=== PATIENT | male | born 1995 | race Hispanic/Latino ===

== ENCOUNTER 2018-10-20 11:37 | Emergency (ER) | payer OTHER ==
--- NOTE | 2018-10-20 12:10 | ER ---
Nurse's Notes [facility] Name: Ian Garcia Age: 23 yrs Sex: Male : 1995 Arrival Date: 10/20/2018 Time: 11:39 Bed 15 Private MD: Diagnosis: Cellulitis and inflammation of penis Presentation: 10/20 11:46 Presenting complaint: Patient states: possible insect bite to groin area that it's red aa5 and tender. Pt reports he noticed it yesterday. Transition of care: patient was not received from another setting of care. Onset of symptoms was October 2018. Risk Assessment: Do you want to hurt yourself or someone else? Patient reports no desire to harm self or others. Initial Sepsis Screen: Does the patient meet any 2 criteria? No. Patient's initial sepsis screen is negative. Does the patient have a suspected source of infection? No. Patient's initial sepsis screen is negative. Care prior to arrival: None. 11:46 Acuity: KATHLEEN 4 aa5 11:46 Method Of Arrival: Ambulatory aa5 Historical: - Allergies: 11:47 No Known Allergies; aa5 - Home Meds: 11:47 None [Active]; aa5 - PMHx: 11:47 None; aa5 - PSHx: 11:47 None; aa5 - Immunization history:: Adult Immunizations up to date. - Social history:: Smoking status: Patient uses tobacco products, denies chronic smoking, but will smoke occasionally. - Ebola Screening: : No symptoms or risks identified at this time. - Family history:: not pertinent. - Hospitalizations: : No recent hospitalization is reported. Screenin:16 Abuse screen: Denies threats or abuse. Denies injuries from another. Nutritional aj screening: No deficits noted. Tuberculosis screening: No symptoms or risk factors identified. Fall Risk None identified. Assessment: 12:16 General: Appears in no apparent distress. comfortable, Behavior is calm, cooperative, aj appropriate for age. Pain: Complains of pain in shaft of penis. Neuro: Level of Consciousness is awake, alert, obeys commands, Oriented to person, place, time, situation, Appropriate for age. Respiratory: Airway is patent Respiratory effort is even, unlabored, Respiratory pattern is regular, symmetrical. Derm: Skin is intact, is healthy with good turgor, Skin is pink, warm \T\ dry. normal, Abscess located on shaft of penis. Vital Signs: 11:47 BP 130 / 66; Pulse 72; Resp 16 S; Temp 98.0(TE); Pulse Ox 98% on R/A; Weight 104.33 kg aa5 (R); Height 6 ft. 1 in. (185.42 cm) (R); Pain 5/10; 11:47 Body Mass Index 30.34 (104.33 kg, 185.42 cm) aa5 ED Course: 11:39 Patient arrived in ED. as 11:46 Arm band placed on. aa5 11:47 Triage completed. aa5 11:51 Jarod Coppola MD is Attending Physician. rn 12:09 Livia Terry RN is Primary Nurse. aj 12:16 Patient has correct armband on for positive identification. aj 12:16 No provider procedures requiring assistance completed. Patient did not have IV access aj during this emergency room visit. Administered Medications: No medications were administered Outcome: 12:09 Discharge ordered by . rn 12:16 Discharged to home ambulatory. aj 12:16 Condition: good 12:16 Discharge instructions given to patient, Instructed on discharge instructions, follow up and referral plans. medication usage, Demonstrated understanding of instructions, follow-up care, medications, Prescriptions given X 2. 12:17 Patient left the ED. aj Signatures: Livia Terry, RN RN Emma Caal Roman, MD MD rn Calderon, Audri, RN RN [facility]
--- NOTE | 2018-10-20 12:10 | EDPHYS ---
Physician Documentation [facility] Name: Ian Garcia Age: 23 yrs Sex: Male : 1995 Arrival Date: 10/20/2018 Time: 11:39 Bed 15 Private MD: ED Physician Jarod Coppola HPI: 10/20 11:59 This 23 yrs old Male presents to ER via Ambulatory with complaints of Insect rn Bite/swollen area. 11:59 the patient presents with a swollen area of the pelvis. Description: swollen, warm. rn Onset: The symptoms/episode began/occurred yesterday. Possible cause(s): unknown. Modifying factors: the symptoms are alleviated by nothing, the symptoms are aggravated by touching. Severity of symptoms: At their worst the symptoms were mild, in the emergency department the symptoms are unchanged. The patient has not experienced similar symptoms in the past. REports noticed swelling and pain since yesterday, at left base of penis, not sure if insect bite or ingrown hair, shaves, no fever, has been "messing with it", no purulence or pus expressed, reports only blood comes out. Denies concern for STI. Now left groin hurts as well. No scrotal pain or complaints. . Historical: - Allergies: 11:47 No Known Allergies; aa5 - Home Meds: 11:47 None [Active]; aa5 - PMHx: 11:47 None; aa5 - PSHx: 11:47 None; aa5 - Immunization history:: Adult Immunizations up to date. - Social history:: Smoking status: Patient uses tobacco products, denies chronic smoking, but will smoke occasionally. - Ebola Screening: : No symptoms or risks identified at this time. - Family history:: not pertinent. - Hospitalizations: : No recent hospitalization is reported. ROS: 11:59 Constitutional: Negative for fever, chills, and weight loss, Abdomen/GI: Negative for rn abdominal pain, nausea, vomiting, diarrhea, and constipation, : Negative for injury, discharge MS/Extremity: Negative for injury and deformity, Skin: + left groin adn penile pain/swelling Exam: 11:59 Constitutional: This is a well developed, well nourished patient who is awake, alert, rn and in no acute distress. Male : + left base of penis with 1.5 cm area of swelling, is mobile and superficial, mild tenderness without fluctuance, mild surrounding erythema, no swelling or masses/skin changes of perineum or scrotum. MS/ Extremity: + left inguinal tender LAD. Vital Signs: 11:47 BP 130 / 66; Pulse 72; Resp 16 S; Temp 98.0(TE); Pulse Ox 98% on R/A; Weight 104.33 kg aa5 (R); Height 6 ft. 1 in. (185.42 cm) (R); Pain 5/10; 11:47 Body Mass Index 30.34 (104.33 kg, 185.42 cm) aa5 MDM: 11:51 Patient medically screened. rn 11:59 Differential diagnosis: cellulitis, insect bite, ingrown hair, folliculitis. Data rn reviewed: vital signs, nurses notes, and as a result, I will discharge patient. Counseling: I had a detailed discussion with the patient and/or guardian regarding: the historical points, exam findings, and any diagnostic results supporting the discharge/admit diagnosis, the need for outpatient follow up, to return to the emergency department if symptoms worsen or persist or if there are any questions or concerns that arise at home. Special discussion: I discussed with the patient/guardian in detail that at this point there is no indication for admission to the hospital. It is understood, however, that if the symptoms persist or worsen the patient needs to return immediately for re-evaluation. ED course: NO fluctuance, has not been able to express anything other than blood, mobile and very superficial, most likely ingrown hair with reactive cellulitis, and inguinal LAD. Does not appear to be abscess at this time, will dc home with double abx coverage and return precautions. Advised to stop shaving so close to skin.. Administered Medications: No medications were administered Disposition: 10/20/18 12:09 Discharged to Home. Impression: Cellulitis and inflammation of penis. - Condition is Stable. - Discharge Instructions: Cellulitis, Adult. - Prescriptions for Clindamycin HCl 300 mg Oral Capsule - take 1 capsule by ORAL route every 6 hours for 10 days; 40 capsule. Bactrim DS 800- 160 mg Oral Tablet - take 1 tablet by ORAL route every 12 hours for 10 days; 20 tablet. - Medication Reconciliation Form, Thank You Letter, Antibiotic Education, Prescription Opioid Use form. - Follow up: Private Physician; When: As needed; Reason: Recheck today's complaints, Re-evaluation by your physician. - Problem is new. - Symptoms are unchanged. Signatures: Livia Terry RN Jarod Carlos MD MD rn Calderon, Audri, RN RN aa5 Corrections: (The following items were deleted from the chart) 12:17 12:09 10/20/2018 12:09 Discharged to Home. Impression: Cellulitis and inflammation of aj penis. Condition is Stable. Forms are Medication Reconciliation Form, Thank You Letter, Antibiotic Education, Prescription Opioid Use. Follow up: Private Physician; When: As needed; Reason: Recheck today's complaints, Re-evaluation by your physician. Problem is new. Symptoms are unchanged. rn
== END 2018-10-20 12:17 | disposition home or self-care (01) ==
LOC: ER 11:37
DX: N48.22 Cellulitis of corpus cavernosum and penis (principal); F17.210 Nicotine dependence, cigarettes, uncomplicated
CPT/HCPCS: 99282